=== PATIENT | female | born 1985 | race African-American/Black ===

== ENCOUNTER 2017-03-13 06:01 | Day surgery (SDC) | payer OTHER ==
[2017-03-10 13:17] VITALS: BMI 29.0
[2017-03-13] MEDS ORDERED: MIDAZOLAM HCL 2 MG/2 ML SINGLE DOSE VIAL ONE (07:44)
[2017-03-13] MEDS ORDERED: PROPOFOL 20 ML ONE ×2 (07:48)
[2017-03-13] MEDS ORDERED: SUCCINYLCHOLINE CHLORIDE 200 MG/10 ML VIAL ONE (07:49)
[2017-03-13] MEDS ORDERED: LIDOCAINE HCL 2% 100 MG/5 ML DISP.SYRIN ONE (08:18)
[2017-03-13] MEDS ORDERED: ceFAZolin SODIUM 1 GM VIAL ONE (08:28)
[2017-03-13] MEDS ORDERED: ONDANSETRON 4 MG/2 ML VIAL ONE (08:48)
[2017-03-13] MEDS ORDERED: DEXAMETHASONE SOD PHOSPHATE 4 MG/1 ML VIAL ONE (08:48)
[2017-03-13] MEDS ORDERED: KETOROLAC TROMETHAMINE 30 MG/1 ML VIAL ONE (09:43)
[2017-03-13] MEDS ORDERED: oxyCODONE HCL 5 MG TABLET PO PRN (09:53)
[2017-03-13] MEDS ORDERED: ONDANSETRON 4 MG/2 ML VIAL IVPUSH PRN (09:53)
[2017-03-13] MEDS ORDERED: IBUPROFEN 600 MG TABLET (FP) PO PRN (09:59)
[2017-03-13] MEDS ORDERED: LACTATED RINGERS SOLUTION 1,000 ML IV SCH ×2 (10:00)
[2017-03-13 12:14] VITALS: TEMP 98.1
[2017-03-13 12:19] VITALS: BP 107/67; PULSE 78
--- NOTE | 2017-03-13 12:27 | OP ---
DATE OF OPERATION: 03/13/2017 PREOPERATIVE DIAGNOSIS: A 31-year-old 0 with cervical stenosis. POSTOPERATIVE DIAGNOSIS: A 31-year-old 0 with cervical stenosis and endometrial polyps. PROCEDURE: Examination under anesthesia, diagnostic hysteroscopy, cervical dilation, hysterosalpingogram, dilatation and curettage, and polypectomy. SURGEONS: Diane Li MD ATTENDING PHYSICIAN: Diane Li MD FELLOW: Xiang Mckenna MD RESIDENT: Xiang Taylor MD ANESTHESIA: General LMA anesthesia. ANESTHESIOLOGIST: Alis Chavez MD FINDINGS: 1. Examination under anesthesia demonstrated 7-week size anteverted retroflexed uterus with suspected intraabdominal adhesions. No adnexal masses. 2. Attempted hysterosalpingogram with backflow of dye into vagina. 3. Diagnostic hysteroscopy performed with four less than 1 cm sized anterior wall endometrial polyps. 4. Hysterosalpingogram then successfully performed which demonstrated filling defects in uterus consistent with endometrial polyps, successful fill and spill from left fallopian tube and with additional pressure, successful fill and spill from right fallopian tube. 5. Additional mechanical dilation to 17-Korean. 6. Sharp curettage performed. 7. Hysteroscopy reinserted. No perforation noted. Additional polyps were removed via hysteroscope. 8. Additional mechanical dilation then performed to 20-Korean. SPECIMENS: Endometrial polyps. ESTIMATED BLOOD LOSS: 5 mL. FLUIDS: Crystalloid, 1500 mL. URINE OUTPUT: Bella catheter, 75 mL. COMPLICATIONS: None. DRAINS: Bella catheter. DESCRIPTION OF OPERATION: The risks, benefits, and alternatives of the procedure were discussed with the patient, and informed consent form was obtained with a witness present. Patient was taken to the operating room where general LMA anesthesia was achieved without difficulty. Patient was then placed in dorsal lithotomy position using Fabrice stirrups. Examination under anesthesia was then undertaken which revealed the above noted findings. The patient was then prepped and draped in the usual sterile fashion. A bivalve speculum was placed in the vagina and a single-tooth tenaculum was used to grasp the anterior lip of the cervix. At this time, hysterosalpingogram was attempted. However, backflow of dye was noted into vagina, and decision was made to proceed with hysteroscopy. The diagnostic hysteroscope was then set up and the uterine cavity was successfully entered under direct visualization using hysteroscope. Normal saline was used as a distension medium throughout the procedure. Bilateral tubal ostia were noted within uterus and four subcentimeter anterior wall endometrial polyps were also noted. Hysteroscope was then removed. The hysterosalpingogram was then successfully performed under fluoroscopy which demonstrated the above noted findings. At this time, a sharp curettage was performed, and endometrial polyps were removed. Hysteroscope was then reinserted, and a uterine cavity evaluation was undertaken once again. Two further polyps were noted. These polyps were removed using hysteroscopic graspers and also sent for pathologic evaluation. At this time, a further serial dilatation was undertaken to a total of 20-Korean. Of note, in order to enter the uterus successfully, the dilators were placed at the 1 o'clock position anteriorly consistent with anteverted uterus. However, then, the uterus was noted to be retroflexed past that point. At this time, the decision was made to complete the procedure. All instruments were removed from the patients vagina, and good hemostasis was noted. Patient was repositioned to the dorsal supine position and extubated successfully in the operating room. All instrument, lap, and sponge counts were correct x2. One was negative when intakes and outputs were noted. Bella catheter was removed from the patients bladder. Patient was then transferred to the recovery room in stable condition. Procedure overall uncomplicated. This operative note was completed by . DIANE LI M.D. [id number]
[2017-03-14] MEDS ORDERED: PATIENT'S OWN MEDICATION (NON-FORMULARY) (Cetirizine Hcl 10 MG) PO SCH (10:00)
--- NOTE | 2017-03-16 15:38 | PATH ---
Surgical Pathology Report Patient Name: [facility]. Rec. #: [id number] /Age/Gender: 1985 (Age: 31) / F Account: [id number] Location: [facility] AMBULATORY Taken: 03/13/2017 Received: 03/13/2017 Reported: 03/16/2017 Physicians: Janes Li M.D. Specimen(s) Received ENDOMETRIAL POLYPS Clinical History Cervical stenosis, endometrial polyps in cavity Final Diagnosis ENDOMETRIAL POLYPS, HYSTEROSCOPIC POLYPECTOMY: ENDOMETRIAL POLYPS. Electronically Signed Marlyn Giles M.D. Gross Description Received in formalin labelled "endometrial polyps" is an approximately 2 x 2 x 0.6 cm aggregate of dean tissue fragments and clotted blood. Totally submitted in [address] [facility]/03/13/2017 [facility]/03/13/2017
== END 2017-03-13 12:00 | disposition home or self-care (01) ==
LOC: FASU 06:01
PROVIDERS: ATTEND Obstetrics & Gynecology Reproductive Endocrinology
PROC: BU1 Imaging, Female Reproductive System, Fluoroscopy (ICD-10-PCS; 2017-03-13)
PROC: 0UB98ZX Excision of Uterus, Via Natural or Artificial Opening Endoscopic, Diagnostic (ICD-10-PCS; principal; 2017-03-13 08:11)
PROC: 0UDB7ZX Extraction of Endometrium, Via Natural or Artificial Opening, Diagnostic (ICD-10-PCS; 2017-03-13 08:11)
DX: N88.2 Stricture and stenosis of cervix uteri (principal); N84.0 Polyp of corpus uteri
CPT/HCPCS: 58340; 74740-TC; 76000-TC; 76001-TC; 76831; 84703; 88305-TC; 94760; C1726; Q9967